=== PATIENT | male | born 1940 | race Caucasian/White ===

== ENCOUNTER 2016-10-13 10:20 | Emergency (ER) | payer BC, MEDICARE, OTHER ==
--- NOTE | 2016-10-13 10:56 | UC ---
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 hx dysrrhymia/hx cardiac arrest/ pacer - History of Current Complaint Stated Complaint: CHEST PAIN Time Seen by Provider: 10/13/16 10:27 Onset/Duration: Gradual Onset, Lasting Days Initial Severity: Mild Current Severity: Moderate Pain Intensity: 4 Chest Pain Location: Diffuse, Upper Sternal Character: Pressure/Squeezing Aggravating: Exertion Alleviating: Rest Associated Signs & Symptoms: Positive: Chest Pain - Allergy/Home Medications Allergies/Adverse Reactions: Allergies Allergy/AdvReac Type Severity Reaction Status Date / Time No Known Allergies Allergy Verified 10/13/16 10:49 Home Medications: Home Medications Hydrochlorothiazide TAB* [Hydrodiuril TAB*] 1 tab PO DAILY 10/13/16 [History Confirmed 10/13/16] Hydroxychloroquine TAB* [Plaquenil TAB*] 1 tab PO BID 10/13/16 [History Confirmed 10/13/16] Ibuprofen [Advil] 600 mg PO DAILY 10/13/16 [History Confirmed 10/13/16] Lisinopril [Zestril 20 MG-] 1 tab PO BID 10/13/16 [History Confirmed 10/13/16] Modafinil TAB* [Provigil TAB*] 2 tab PO BID 10/13/16 [History Confirmed 10/13/16 ] Naltrexone (NF) 1 tab PO DAILY 10/13/16 [History Confirmed 10/13/16] Rivaroxaban TAB(*) [Xarelto 20 mg] 1 tab PO DAILY 10/13/16 [History Confirmed ] Rivastigmine CAP(NF) [Exelon (NF)] 1 tab PO BID 10/13/16 [History Confirmed ] buPROPion TAB* [Wellbutrin TAB*] 1 tab PO DAILY 10/13/16 [History Confirmed ] PMH/Surg Hx/FS Hx/Imm Hx Previously Healthy: No - lupu Cardiovascular History: Hypertension, Pacemaker/ICD, Deep Vein Thrombosis Respiratory History: Bronchitis, Pulmonary Embolism - Surgical History Surgical History: Yes Surgery Procedure, Year, and Place: Back Surgergy; Laminectomy/Fusions L4/L5; Microvascular Decompression- Trigemical Neurlagia; Right TKR, Pace Maker; Left Ankle Arthrodesis. - Family History Known Family History: Positive: Hypertension - Social History Alcohol Use: None Substance Use Type: None Smoking Status (MU): Never Smoked Tobacco Review of Systems Constitutional: Fatigue Skin: Negative Eyes: Negative ENT: Negative Respiratory: Shortness Of Breath, Cough Cardiovascular: Chest Pain Gastrointestinal: Negative Genitourinary: Negative Motor: Negative Neurovascular: Negative Musculoskeletal: Negative Neurological: Negative Psychological: Negative All Other Systems Reviewed And Are Negative: Yes Physical Exam Triage Information Reviewed: Yes Appearance: Well-Appearing, No Pain Distress, Well-Nourished Vital Signs: Initial Vital Signs Temp 98.0 F 10/13/16 10:31 Pulse 62 10/13/16 10:31 Resp 18 10/13/16 10:31 BP 101/68 10/13/16 10:31 Pulse Ox 97 10/13/16 10:31 Vital Signs Reviewed: Yes Eyes: Positive: Conjunctiva Clear ENT: Positive: Hearing grossly normal Neck: Positive: Supple Respiratory: Positive: Crackles - right base. Negative: No respiratory distress - increased work of breathing Cardiovascular: Positive: RRR, No Murmur Abdomen Description: Positive: Nontender, No Organomegaly. Negative: CVA Tenderness (R), CVA Tenderness (L) Bowel Sounds: Positive: Present Musculoskeletal: Positive: Other: - legs both with extensive scars slight some edema which he states is baseling Neurological Exam: Normal Neurological: Positive: Alert Psychological Exam: Normal Skin Exam: Normal Diagnostics - EKG Cardiac Rate: NL - paced rhythm - Assessment/Plan Course Of Treatment: d/w Caty. accepts pt. to [facility] [place] ER via ems - Clinical Impression Provider Diagnoses: chest pressure. dyspnea Discharge - Discharge Plan Condition: Guarded Disposition: TRANS HIGHER LVL OF CARE FAC
[2016-10-13 11:15] VITALS: BP 108/64
== END 2016-10-13 11:16 | disposition short-term general hospital (02) ==
LOC: UCEAST 10:20
DX: R07.89 Other chest pain (principal); R06.00 Dyspnea, unspecified; Z86.711 Personal history of pulmonary embolism; Z95.0 Presence of cardiac pacemaker; Z86.74 Personal history of sudden cardiac arrest; I10 Essential (primary) hypertension
CPT/HCPCS: 93005; 99214; G0463

== ENCOUNTER 2016-10-13 11:35 | Observation (INO) | payer BC, MEDICARE, OTHER ==
[2016-10-13] MEDS ORDERED: NS 0.9% 1000 ML* 1,000 ML IV ONE (11:59)
--- NOTE | 2016-10-13 12:29 | RAD ---
INDICATION: Shortness of breath and chest pain COMPARISON: Most recent comparison chest x-rays dated August 26, 2015 TECHNIQUE: PA and lateral views of the chest were obtained. FINDINGS: The left upper chest cardiac pacemaker with 2 leads overlying the heart is unchanged in position from the previous chest x-ray. The heart and mediastinum are normal in size and contour. The pulmonary vasculature is mildly indistinct and engorged. There is patchy density overlying the lateral left lung base causing a mild degree of costophrenic angle blunting that is new since the previous chest x-ray. Otherwise the lungs are grossly clear. There is no evidence of large pleural effusion. Visualized bones are normal for the patient's age. There is no radiographic evidence of free air beneath the diaphragm IMPRESSION: IN THE CORRECT CLINICAL SETTING THESE RADIOGRAPHIC FINDINGS COULD BE SEEN IN THE SETTING OF MILD CONGESTIVE HEART FAILURE. PATCHY DENSITY AT THE LATERAL LEFT LUNG BASE COULD BE ATELECTASIS OR SMALL PLEURAL EFFUSION.
[2016-10-13 12:33] LABS: Hematocrit 38 % (42-52); Hemoglobin 12.4 g/dl (14.0-18.0); Mean Corpuscular HGB Conc 33 g/dl (31-36); Mean Corpuscular Hemoglobin 29 pg (27-31); Mean Corpuscular Volume 88 fL (80-94); Mean Platelet Volume 10 um3 (7.4-10.4); Red Blood Count 4.32 10^6/ul (4.0-5.4); Red Cell Distribution Width 17 % (10.5-15); White Blood Count 5.3 10^3/ul (3.5-10.8)
[2016-10-13 12:44] LABS: Albumin 3.8 g/dL (3.2-5.2); BUN/Creatinine Ratio 27.4 (8-20); Calcium 9.1 mg/dL (8.6-10.3); EGFR African American 99.7 (>60); EGFR Non-African American 77.5 (>60); Globulin 2.3 g/dL (2-4); Potassium 3.9 mmol/L (3.5-5.0); Total Bilirubin 0.6 mg/dL (0.2-1.0); Total Protein 6.1 g/dL (6.4-8.9)
[2016-10-13 12:46] LABS: Troponin I 0.01 ng/mL (<0.04)
[2016-10-13] MEDS ORDERED: Furosemide IV* 10 MG/ML VIAL (40 MG) IV SLOW PU ONE (13:28)
--- NOTE | 2016-10-13 14:03 | ED ---
Daniel Mccall Alok, scribed for Harsha Grossman MD on 10/13/16 at 1147 . HPI Chest Pain - HPI Summary HPI Summary: 76M presents to the ED BIBA sent here from for CP and SOB. Pt states that he has felt this CP/SOB mildly for the past 3 weeks, worsening over the last 5-6 days. Pt describes his CP as a squeezing/tightness. Pt states that his SOB worsens with ambulation as well as supine position and is accompanied by dizziness and unsteady gait. Pt also notes a productive cough with green/yellow sputum which has become less productive for the past few days. This cough began several weeks ago following a diuretic treatment for his SOB resulting in fluid in the lungs. The pt states his cough worsens at night. Pt states he has been sleeping in an upright position for the last 8-9 days. Pt also notes calf pain 3 -4 days ago as well as wheezing this morning. Pt denies lower extremity edema, fever, or chills. PMHx includes h/o DVT following right knee replacement 2.5 years ago as well as h/o pericarditis and mild loopis. Pt takes xerelto and denies any recent breaks from his medication. Pt was also given doxycycline and prednisone 3 weeks ago which improved his cough. Pt states he last had a stress test 8 days ago in [place], [place]. Pt has NKDA. - History of Current Complaint Time Seen by Provider: 10/13/16 11:37 Hx Obtained From: Patient Onset/Duration: Started Weeks Ago, Atraumatic, Still Present, Worse Since - 5-6 days ago Initial Severity: Moderate Current Severity: Moderate Pain Intensity: 5 Pain Scale Used: 0-10 Numeric Character: Dyspnea at Exertion, Pressure/Squeezing, Tightness Aggravating Factor(s): Exertion, Position Associated Signs and Symptoms: Positive: Chest Pain, Shortness of Breath, Lightheadedness, Productive Cough, Calf Pain/Swelling, Wheezing. Negative: Fever, Chills - Allergy/Home Medications Allergies/Adverse Reactions: Allergies Allergy/AdvReac Type Severity Reaction Status Date / Time No Known Allergies Allergy Verified 10/13/16 10:49 PMH/Surg Hx/FS Hx/Imm Hx Cardiovascular History: Reports: Hx Hypertension, Other Cardiovascular Problems/ Disorders - Pericarditis Denies: Hx Congestive Heart Failure, Hx Valvular Heart Disease Respiratory History: Denies: Hx Asthma, Hx Chronic Obstructive Pulmonary Disease (COPD) - Surgical History Surgery Procedure, Year, and Place: Back Surgergy; Laminectomy/Fusions L4/L5; Microvascular Decompression- Trigemical Neurlagia; Right TKR, Pace Maker; Left Ankle Arthrodesis. - Family History Known Family History: Positive: Hypertension Negative: Cardiac Disease - Social History Occupation: Retired Lives: With Family Alcohol Use: None Substance Use Type: Reports: None Smoking Status (MU): Never Smoked Tobacco Review of Systems Negative: Fever, Chills Positive: Chest Pain Positive: Shortness Of Breath, Cough, Other - wheezing Positive: Other - Calf pain All Other Systems Reviewed And Are Negative: Yes Physical Exam - Summary Physical Exam Summary: The patient is well-nourished in no acute distress and in no acute pain. The skin is warm and dry and skin color reflects adequate perfusion. HEENT: The head is normocephalic and atraumatic. The pupils are equal and reactive. The conjunctivae are clear and without drainage. Nares are patent and without drainage. Mouth reveals slightly dry mucous membranes and the throat is without erythema and exudate. The external ears are intact. The ear canals are patent and without drainage. The tympanic membranes are intact. Neck is supple with full range of motion and non-tender. There are no carotid bruits. There is positive neck vein distension. Respiratory: There are positive lung crackles in the right upper lung scott. There is no wheezing or rhonchi appreciated. Cardiovascular: Hear is regular rate and rhythm. There is no murmur or rub auscultated. There is a pitting lower extremity edema up to the knees bilaterally, and pulses are good distally. Abdomen: The abdomen is soft and non-tender. There are normal bowel sounds heard in all four quadrants and there is no organomegaly palpated. Musculoskeletal: There is no back pain noted. Extremities are non-tender with full range of motion. There is good capillary refill. There is a pitting lower extremity edema up to the knees bilaterally. There is an obvious deformity at the left ankle due to previous surgery. Neurological: Patient is alert and oriented to person, place and time. The patient has symmetrical motor strength in all four extremities. Cranial nerves are grossly intact. Deep tendon reflexes are symmetrical and equal in all four extremities. Psychiatric: The patient has an appropriate affect and does not exhibit any anxiety or depression. Triage Information Reviewed: Yes Vital Signs On Initial Exam: Initial Vital Signs Temp 98.4 F 10/13/16 11:40 Pulse 67 10/13/16 11:40 Resp 20 10/13/16 11:40 BP 115/74 10/13/16 11:40 Pulse Ox 96 10/13/16 11:40 Vital Signs Reviewed: Yes Diagnostics - Vital Signs Vital Signs Temp Pulse Resp BP Pulse Ox 10/13/16 13:32 64 100 10/13/16 11:40 98.4 F 67 20 115/74 96 - Laboratory Lab Results: Lab Results 10/13/16 10/13/16 10/13/16 Range/Units 10:52 10:52 10:52 WBC 5.3 (3.5-10.8) 10^3/ul RBC 4.32 (4.0-5.4) 10^6/ul Hgb 12.4 L (14.0-18.0) g/dl Hct 38 L (42-52) % MCV 88 (80-94) fL MCH 29 (27-31) pg MCHC 33 (31-36) g/dl RDW 17 H (10.5-15) % Plt Count 141 L (150-450) 10^3/ul MPV 10 (7.4-10.4) um3 Neut % (Auto) 72.6 (38-83) % Lymph % (Auto) 9.8 L (25-47) % Collin % (Auto) 8.1 (1-9) % Eos % (Auto) 8.5 H (0-6) % Baso % (Auto) 1.0 (0-2) % Absolute Neuts (auto) 3.8 (1.5-7.7) 10^3/ul Absolute Lymphs (auto) 0.5 L (1.0-4.8) 10^3/ul Absolute Monos (auto) 0.4 (0-0.8) 10^3/ul Absolute Eos (auto) 0.4 (0-0.6) 10^3/ul Absolute Basos (auto) 0.1 (0-0.2) 10^3/ul Absolute Nucleated RBC 0.01 10^3/ul Nucleated RBC % 0.1 INR (Anticoag Therapy) 1.40 H (0.89-1.11) D-Dimer, Quantitative 225 (Less Than 230) ng/mL Sodium 136 (133-145) mmol/L Potassium 3.9 (3.5-5.0) mmol/L Chloride 106 (101-111) mmol/L Carbon Dioxide 29 (22-32) mmol/L Anion Gap 1 L (2-11) mmol/L BUN 26 H (6-24) mg/dL Creatinine 0.95 (0.67-1.17) mg/dL Est GFR ( Amer) 99.7 (>60) Est GFR (Non-Af Amer) 77.5 (>60) BUN/Creatinine Ratio 27.4 H (8-20) Glucose 77 (70-100) mg/dL Lactic Acid (0.5-2.0) mmol/L Calcium 9.1 (8.6-10.3) mg/dL Total Bilirubin 0.60 (0.2-1.0) mg/dL AST 25 (13-39) U/L ALT 30 (7-52) U/L Alkaline Phosphatase 67 (34-104) U/L Troponin I 0.01 (<0.04) ng/mL B-Natriuretic Peptide ( - 100) pg/mL Total Protein 6.1 L (6.4-8.9) g/dL Albumin 3.8 (3.2-5.2) g/dL Globulin 2.3 (2-4) g/dL Albumin/Globulin Ratio 1.7 (1-3) 10/13/16 10/13/16 Range/Units 10:52 10:52 WBC (3.5-10.8) 10^3/ul RBC (4.0-5.4) 10^6/ul Hgb (14.0-18.0) g/dl Hct (42-52) % MCV (80-94) fL MCH (27-31) pg MCHC (31-36) g/dl RDW (10.5-15) % Plt Count (150-450) 10^3/ul MPV (7.4-10.4) um3 Neut % (Auto) (38-83) % Lymph % (Auto) (25-47) % Collin % (Auto) (1-9) % Eos % (Auto) (0-6) % Baso % (Auto) (0-2) % Absolute Neuts (auto) (1.5-7.7) 10^3/ul Absolute Lymphs (auto) (1.0-4.8) 10^3/ul Absolute Monos (auto) (0-0.8) 10^3/ul Absolute Eos (auto) (0-0.6) 10^3/ul Absolute Basos (auto) (0-0.2) 10^3/ul Absolute Nucleated RBC 10^3/ul Nucleated RBC % INR (Anticoag Therapy) (0.89-1.11) D-Dimer, Quantitative (Less Than 230) ng/mL Sodium (133-145) mmol/L Potassium (3.5-5.0) mmol/L Chloride (101-111) mmol/L Carbon Dioxide (22-32) mmol/L Anion Gap (2-11) mmol/L BUN (6-24) mg/dL Creatinine (0.67-1.17) mg/dL Est GFR ( Amer) (>60) Est GFR (Non-Af Amer) (>60) BUN/Creatinine Ratio (8-20) Glucose (70-100) mg/dL Lactic Acid 1.2 (0.5-2.0) mmol/L Calcium (8.6-10.3) mg/dL Total Bilirubin (0.2-1.0) mg/dL AST (13-39) U/L ALT (7-52) U/L Alkaline Phosphatase (34-104) U/L Troponin I (<0.04) ng/mL B-Natriuretic Peptide 457 H ( - 100) pg/mL Total Protein (6.4-8.9) g/dL Albumin (3.2-5.2) g/dL Globulin (2-4) g/dL Albumin/Globulin Ratio (1-3) Result Diagrams: 10/13/16 10:52 10/13/16 10:52 Lab Statement: Any lab studies that have been ordered have been reviewed, and results considered in the medical decision making process. - Radiology CXR Xray Interpretation: Positive (See Comments) - IN THE CORRECT CLINICAL SETTING THESE RADIOGRAPHIC FINDINGS COULD BE SEEN IN THE SETTING OF MILD CONGESTIVE HEART FAILURE. PATCHY DENSITY AT THE LATERAL LEFT LUNG BASE COULD BE ATELECTASIS OR SMALL PLEURAL EFFUSION. Radiology Interpretation Completed By: Radiologist - EKG 1153 EKG Interpretation: Paced Rhythm Re-Evaluation - Re-Evaluation First Eval Re-Evaluation Time: 13:29 Change: Unchanged Comment: Reviewed pt labs and XRAY. Pt agrees to admit at [facility] [place]. Chest Pain Course/Dx - Course Course Of Treatment: Pt presents with CP and SOB on exertion. EKG and CXR done. Spoke with Dr. Acosta who agreed to admit to [facility] [place]. - Chest Pain Differential Diagnosis/HQI/PQRI: Acute ND, ACS, CHF, Lower Respiratory Infection , Pulmonary Edema, Pulmonary Embolism - Diagnoses Provider Diagnoses: Acute dyspnea, CHF (congestive heart failure) - Provider Notifications Discussed Care Of Patient With: Lou Acosta - Will admit pt to [facility] [place] Time Discussed With Above Provider: 13:26 - Critical Care Time Critical Care Time: 30-74 min - 30 min Discharge - Discharge Plan Condition: Stable Disposition: ADMITTED TO [facility] Referrals: No Primary Care Phys,NOPCP [Primary Care Provider] - The documentation as recorded by the Daniel dobbins Alok accurately reflects the service I personally performed and the decisions made by me, Harsha Grossman MD.
[2016-10-13] MEDS ORDERED: Hydroxychloroquine TAB* 200 MG PO SCH (17:00)
[2016-10-13] MEDS ORDERED: QUEtiapine TAB* 100 MG PO PRN (17:38)
--- NOTE | 2016-10-13 17:45 | ECHO ---
Patient: LESLIE GILMORE [facility] Rec#: [id number] : 1940 Date: 10/13/2016 Age: 76y Height: 180 cm / 70.9 in Weight: 115.7 kg / 255.0 lbs Sex: M BSA: 2.34 Room#: 432 Admit Date#: 10/13/2016 Type: Inpatient Referring: Lou Acosta DO Reading: Matti Arguello MD Director College: Amira Banda RN RDCS Transthoracic Echocardiogram Indication: CHF BP: 127/85 HR: 67 Rhythm: Paced Findings History: HTN, pacemaker, pericarditis, DVT Technical Comments: The study quality is fair. The study is technically limited due to patient body habitus. Completed at 1715. Left Ventricle: The left ventricular chamber size is normal. There is increased basal septal hypertrophy noted without evidence of an increased gradient across the left ventricular outflow tract. Global left ventricular wall motion and contractility are within normal limits. Left ventricular systolic function is at the lower limits of normal. The estimated ejection fraction is 55-60%. There is abnormal ventricular septal wall motion consistent with right ventricular pacemaker. Abnormal left ventricular diastolic function is observed. Left Atrium: The left atrium is moderately dilated. Right Ventricle: The right ventricular chamber size and systolic function are within normal limits. The right ventricle wall thickness is moderately increased.8 mm. A pacemaker wire is visualized in the right ventricle. Right Atrium: The right atrium is mildly dilated. A pacemaker wire is visualized in the right atrium. Aortic Valve: The aortic valve is trileaflet. The aortic valve leaflets are mildly thickened. There is no evidence of aortic regurgitation. There is no evidence of aortic stenosis. Mitral Valve: Mild mitral annular calcification present. The mitral valve leaflets are mildly thickened. There is mild to moderate mitral regurgitation. There is no evidence of mitral stenosis. Tricuspid Valve: The tricuspid valve leaflets are normal. There is mild to moderate tricuspid regurgitation. There is evidence of mild pulmonary hypertension. Pulmonic Valve: The pulmonic valve structure is not well visualized. There is mild pulmonic regurgitation. Pericardium: There is no significant pericardial effusion. A pericardial fat pad is visualized. Aorta: There is no dilatation of the ascending aorta. There is no dilatation of the aortic arch. There is no dilation of the aortic root. Pulmonary Artery: The main pulmonary artery is not well visualized. Venous: The inferior vena cava is not visualized. Summary: There was not any prior study for comparison. Conclusions The study quality is fair. There is increased basal septal hypertrophy noted without evidence of an increased gradient across the left ventricular outflow tract. The estimated ejection fraction is 55-60%. There is abnormal ventricular septal wall motion consistent with right ventricular pacemaker. Abnormal left ventricular diastolic function is observed. The left atrium is moderately dilated. The right ventricle wall thickness is moderately increased.8 mm. The aortic valve leaflets are mildly thickened. There is mild to moderate mitral regurgitation. There is mild to moderate tricuspid regurgitation. There is evidence of mild pulmonary hypertension. Measurements Name Value Normal Range RVIDd (AP) 2D 2.7 cm (0.9 - 2.6) RVDdMajor (2D) 4.4 cm (2.2 - 4.4) RAd ISD 4CH 5.3 cm (3.4 - 4.9) RA (A4C)W 4.2 cm (2.9 - 4.6) IVSd (2D) 1.4 cm (0.6 - 1) LVPWd (2D) 0.9 cm (0.6 - 1) LVIDd (2D) 4.4 cm (3.6 - 5.4) LVIDs (2D) 3.5 cm - LV FS (2D) 20 % (25 - 45) Aortic Annulus 1.8 cm (1.4 - 2.6) Ao root diameter (2D) 3.3 cm (2.1 - 3.5) Ascending Ao 3.1 cm (2.1 - 3.4) Aortic arch 2.8 cm (1.8 - 3.4) LA dimension (AP) 2D 3.7 cm (2.3 - 3.8) LAd ISD 4CH 5.4 cm (2.9 - 5.3) LA ISD 4CH W 4.4 cm (2.5 - 4.5) Name Value Normal Range LA ESV SP 4CH (A/L) 60 ml - LA ESV SP 2CH (A/L) 70 ml - LA ESV BP (A/L) 73 ml - LA ESV BP (A/L) index 31.2 ml/m2 - LA ESV SP 4CH (MOD) 54 ml - LA ESV SP 2CH (MOD) 67 ml - Name Value Normal Range MV E-wave Vmax 1.2 m/sec - MV deceleration time 184 msec - LV septal e' Vmax 0.04 m/sec - LV lateral e' Vmax 0.05 m/sec - LV E:e' septal ratio 30 ratio - LV E:e' lateral ratio 24 ratio - Name Value Normal Range AV Vmax 1.1 m/sec - AV VTI 22 cm - AV peak gradient 5 mmHg - AV mean gradient 3 mmHg - LVOT Vmax 0.85 m/sec - LVOT VTI 17.4 cm - LVOT peak gradient 3 mmHg - LVOT mean gradient 2 mmHg - VIVIANA Vmax 0.87 m/sec - Name Value Normal Range TR Vmax 2.7 m/sec - TR peak gradient 29 mmHg - RAP 8 mmHg - RVSP 37 mmHg - Name Value Normal Range PV Vmax 0.69 m/sec -
[2016-10-13] MEDS ORDERED: Latanoprost 0.005%* 2.5 ml BTL BOTH EYES SCH (18:00)
[2016-10-13] MEDS: Lisinopril TAB* 10 MG PO SCH (20:56)
[2016-10-13] MEDS: Timolol 0.5% OPTH.SOL* BTL RIGHT EYE SCH (20:56)
[2016-10-13] MEDS: Hydroxychloroquine TAB* 200 MG PO SCH (20:56)
[2016-10-13] MEDS: CMC:Rivastigmine CAP(NF) 1.5 MG CAP PO SCH (20:58)
--- NOTE | 2016-10-14 07:01 | HP ---
CC: Dr. Samuel Fatima; Dr. Brandy Bustos; Dr. Tamir Tran* HISTORY AND PHYSICAL: DATE OF ADMISSION: 10/13/16 PRIMARY CARE PHYSICIAN: Dr. Samuel Fatima, [facility], [place], [place]. HEAVY FORGING MACHINE OPERATOR: Dr. Brandy Bustos, [facility]. PHOTO CARTOGRAPHER: Dr. Tamir Tran, [facility]. CHIEF COMPLAINT: Chest tightness and shortness of breath. HISTORY OF PRESENT ILLNESS: Mr. Brandy Gardner is a 76-year-old male who earlier this month around September 21 to began to have chest tightness and shortness of breath. He was seen at Urgent Care back home on 09/24/16. At that time, he believes he was diagnosed with reactive airway disease related to a viral infection and started on prednisone. The patient states that on , lab works came back from the Urgent Care. This showed he had perhaps some mild CHF. At that point, he was started on furosemide for approximately 1 week. The patient began to feel better. On 09/26/16, he underwent a chemical nuclear stress test that did not reveal any evidence of ischemia (per the patient); however, on the night of 09/26/16, the patient began to have significant cough and green sputum production. He was then started on doxycycline on 09/27/16. The patient was still symptomatic, but feeling improved. Therefore, got on an airplane on 09/28/16 and flew to [place]. The patient had been okay for the last couple of weeks until 4 to 5 days ago, when he noted that his cough became much more significant. He describes the cough as being mostly nocturnal. He also described having some wheezing. He has been sleeping in the recliner over the last 2 weeks. He continues to bring up some sputum that is light yellow in color. The patient went to Urgent Care on the morning of admission due to continued shortness of breath with exertion. This has become so severe that he was unable to walk across the yard to get breakfast on the morning of admission. The patient was then transferred to [facility] for admission. PAST MEDICAL HISTORY: 1. Lupus. 2. Gluten intolerance. 3. History of pericarditis x2. 4. History of pleurisy x1. 5. 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 6. Left foot surgery. 7. Mild cognitive impairment. 8. Obstructive sleep apnea. 9. Lumbar spine surgery. 10. Pacemaker insertion in 2006, etiology unclear. MEDICATIONS: The patient is not sure of some medication. This is the best guess of what he is taking. 1. Plaquenil 200 mg p.o. b.i.d. 2. Bupropion 75 mg p.o. daily. 3. Rivastigmine 1.5 mg p.o. b.i.d. 4. Xarelto 20 mg p.o. daily. 5. Naltrexone 50 mg p.o. daily. 6. Modafinil 200 mg p.o. b.i.d. 7. Lisinopril 20 mg p.o. b.i.d. 8. Ibuprofen 600 mg p.o. daily p.r.n. pain. 9. Hydrochlorothiazide 25 mg p.o. daily. ALLERGIES: No known drug allergies. FAMILY HISTORY: Mom at the age of 97. She had dementia. Dad at the age of 96. He had kidney failure and heart disease. SOCIAL HISTORY: The patient is a nonsmoker. He does not drink alcohol. He is a retired school speech language pathologist. He has 5 children. He has 1 child with his current . REVIEW OF SYSTEMS: The patient denies any fevers, chills, or anorexia. He admits to the chest tightness as above. He did not notice that his left leg was swollen, but during my exam when I pointed out, he states that yes that is more swollen than usual. He admits to shortness of breath and cough as above. He is still producing a small amount of sputum. He denies any nausea, vomiting , abdominal pain, constipation, or diarrhea. No hematochezia, no hematuria, no dysuria. He did take a fall approximately 1 week ago and scrapped his left anterior jarrell while on a boat. At the time of fall and scrapping jarrell, he also hit the back of his head. He believes he may have had a concussion for a couple of days. PHYSICAL EXAMINATION GENERAL: The patient is a well-developed elderly male, who appears younger than his stated age, sitting up in the bed, in no acute distress. VITAL SIGNS: Blood pressure 127/85, pulse 64, respirations 16, temp 98.2, O2 sat 100% on room air. HEENT: Pupils are equal. They are round, react to light. Extraocular muscles are intact. Oropharynx is clear. Oral mucosa is moist. There is no submandibular, cervical, or supraclavicular adenopathy. Thyroid is not enlarged. No thyroid nodules are noted. PULMONARY: Lungs are clear to auscultation bilaterally. There are few bibasilar crackles. CARDIAC: Normal S1, S2. Regular rate and rhythm. I did not appreciate any murmurs. There is trace to 1+ left lower extremity pitting edema. ABDOMEN: Bowel sounds present. Abdomen is soft, nontender, nondistended. MUSCULOSKELETAL: There is no cyanosis or clubbing of the digits. There is full active range of motion of all 4 extremities. SKIN: Warm and dry. There are no rashes. There is scabbed over abrasion with slight erythema around the scab of the left anterior jarrell. There is a small approximately 4 mm round ulceration on the distal tip of the left first toe. It appears to be possible small ulceration on the tip of the left second toe. NEURO: Cranial nerves II through XII are grossly intact. Sensation is intact to light touch throughout. Strength is 5/5 and symmetric both upper and lower extremities bilaterally. PSYCH: The patient is alert and oriented x3. Affect appears appropriate. LABORATORY DATA: WBC 5.3, hemoglobin 12.4, hematocrit 38, platelets 141. INR 1.40. D-dimer 225. Sodium 136, potassium 3.9, chloride 106, CO2 of 29, BUN 26 , creatinine 0.95, glucose 77, lactic acid 1.2, calcium 9.1, bilirubin 0.6, AST 25, ALT 30, alk phos 67. Troponin 0.01. BNP 457. Albumin 3.8. EKG reveals a ventricularly paced rhythm. Chest x-ray read as in the correct clinical setting, radiographic findings could be seen in the setting of mild congestive heart failure. The patchy density at the left lateral lung base could be atelectasis or small pleural effusion. ASSESSMENT AND PLAN: Mr. Brandy Gardner is a 76-year-old male with a history of lupus, PE following a right total knee replacement, hypertension, and obstructive sleep apnea who presented to the emergency room with complaints of persistent chest tightness and shortness of breath, despite being treated for what sounds to be bronchitis, reactive airways and possible mild CHF prior to leaving for vacation approximately 2 weeks ago. 1. Dyspnea. The etiology of this is most likely mild CHF. The patient describes what sounds to be orthopnea and cough at night, which could be attributed to the CHF. He does feel better after receiving IV Lasix in the emergency room. He states that he is urinating much more than he did when he took the Lasix orally at home. The transthoracic echocardiogram has been ordered and being completed at this time. The patient will receive another dose of IV Lasix tomorrow morning. My suspicion is he may be eating a diet higher in salt while on vacation, perhaps this has contributed some. The patient is still coughing bringing up some yellowish colored sputum, however, has no other signs of infection. I did not hear any wheezing on exam. I am going to hold off on prednisone at this point as that can make CHF worse. If he shows any further signs of infection, we will consider starting the patient on either azithromycin or Levaquin. The patient will be monitored overnight an I am hopeful that he will be able to be discharged tomorrow so he can fly back home and followup with his usual providers. I will get a follow up troponin on the patient now; however, my suspicion is very low that he is having an acute coronary syndrome as his symptoms have been persistent for so long. The patient also had a stress test approximately 2 weeks ago. The patient has a it systems analyst at home and my recommendation will be for the patient to followup with him upon arriving home. 2. Hypertension. The patient's blood pressure is under good control. He will be maintained on his usual dose of lisinopril and hydrochlorothiazide. 3. Lupus. The patient will be continued on his usual dose of Plaquenil 200 mg p.o. b.i.d. 4. History of pulmonary embolus. This dates back within the last couple of years, though he has remained on the Xarelto due to a persistently elevated D- dimer. I will continue his Xarelto for now, however, his D-dimer at this admission is within normal range and perhaps the Xarelto could be discontinued. 5. Mild cognitive impairment. Exelon is nonformulary at [facility] and therefore this will be held at this time. 6. DVT prophylaxis. According to the Adult Thrombosis Prophylaxis Risk Factor Assessment Guide, the patient has a total risk factor score of 7, making him the highest risk. He will continue on his Xarelto, which will act as his DVT prophylaxis. 6. Code status is full and patient indicates that his is his healthcare proxy. TIME SPENT: Sixty five minutes was spent admitting this patient. [id number]/[facility] #: [id number] MTDD
[2016-10-14 07:58] VITALS: BP 127/86
[2016-10-14] MEDS ORDERED: Modafinil TAB* 100 MG PO SCH (08:00)
[2016-10-14] MEDS: CMC:Rivastigmine CAP(NF) 1.5 MG CAP PO SCH (08:48)
[2016-10-14] MEDS: Timolol 0.5% OPTH.SOL* BTL RIGHT EYE SCH (08:48)
[2016-10-14] MEDS: Hydroxychloroquine TAB* 200 MG PO SCH (08:48)
[2016-10-14] MEDS ORDERED: Hydrochlorothiazide TAB* 25 MG PO SCH (09:00)
[2016-10-14] MEDS ORDERED: buPROPion TAB* 75 MG PO SCH (09:00)
[2016-10-14] MEDS ORDERED: Furosemide IV* 10 MG/ML VIAL (40 MG) IV SCH (09:00)
[2016-10-14] MEDS: Lisinopril TAB* 10 MG PO SCH (09:14)
[2016-10-14] MEDS ORDERED: Rivaroxaban TAB(*) 20 MG TAB PO SCH (17:00)
--- NOTE | 2016-10-15 08:48 | DS ---
CC: Dr. Samuel Fatima* DISCHARGE SUMMARY: DATE OF ADMISSION: 10/13/2016. DATE OF DISCHARGE: 10/14/2016. PRIMARY CARE PROVIDER: Dr. Samuel Fatima at [facility] in [place], [place]. DISCHARGING PROVIDER: FIORELLA Beard. SUPERVISING PHYSICIAN: Dr. Ashly Freeman* (dictated by FIORELLA Beard). PRIMARY DISCHARGE DIAGNOSIS: Acute diastolic heart failure - resolved. SECONDARY DISCHARGE DIAGNOSES: 1. Lupus. 2. History of pericarditis without evidence of recurrence. 3. Gluten intolerance. 4. Trigeminal neuralgia. 5. Mild cognitive impairment not obvious on initial conversation. 6. Obstructive sleep apnea with mild pulmonary hypertension. 7. Pacemaker in place in 2006, which appears to be working appropriately based on continuous telemetry monitoring. DISCHARGE MEDICATIONS: 1. Lumigan eye drops 0.01% ophthalmic solution one drop in both eyes each evening. 2. Plaquenil 200 mg p.o. twice daily. 3. Lisinopril 20 mg p.o. twice daily. 4. Provigil 200 mg p.o. twice daily. 5. Naltrexone 50 mg p.o. daily. 6. Seroquel 400 mg p.o. at bedtime. 7. Xarelto 20 mg p.o. daily. 8. Exelon 1.5 mg p.o. twice daily. 9. Timolol 0.5% solution one drop in the right eye twice daily. 10. Wellbutrin 75 mg p.o. daily. Medication Changes: 1. Start Lasix. 2. Stop hydrochlorothiazide. HOSPITAL IMAGIN. Chest x-ray showed some mild pulmonary venous congestion. 2. Transthoracic echocardiogram shows normal left ventricular ejection fraction at 55% to 60% with [id number] mitral regurg, some mild thickening of the right ventricle with intact systolic function and evidence of moderately dilated left atrium. HOSPITAL COURSE: This is a 76-year-old gentleman with history of lupus and associated pericarditis on two prior occasions as well as obstructive sleep apnea, history of prior PE for which he is anticoagulated with Xarelto and a pacemaker in place, who presented with complaints of chest tightness and shortness of breath. Patient's symptoms have been ongoing for approximately 3 weeks and patient is visiting from out of town and home is in the [facility] in [place]. He states that he was seen by Urgent Care when symptoms started and was diagnosed with what sounded to be some reactive airway problems and started on prednisone at that time. His followup labs then suggested that perhaps this represented more of a CHF exacerbation and was given furosemide for a week. He underwent nuclear stress testing to follow, which was negative for ischemia. He then developed a more productive cough and was started on doxycycline a few days later and did notice that his symptoms improved at that point for almost a couple of weeks and then became worse again over the last several days to the point that he was unable to ambulate across the parking lot without severe dyspnea. Patient was subsequently evaluated in the emergency department, which demonstrated normal CBC. D-dimer was within normal limits and comprehensive metabolic panel was unremarkable. BNP is moderately elevated to 457 with negative troponin and evidence of mild pulmonary venous congestion on chest x-ray. The patient had few crackles on lung exam at the time of admission as well as evidence of lower extremity edema. Patient was subsequently admitted for what appeared to be CHF exacerbation and was diuresed with IV Lasix. He underwent echocardiogram, which showed normal left ventricular ejection fraction, right ventricle was moderately thickened with evidence of mild pulmonary hypertension. There was no pericardial effusion noted on echocardiogram. The patient was monitored on continuous telemetry without any dysrhythmias and nearly 100% paced rhythm with just few interval PVCs. Vitals remained stable and patient was diuresed with IV Lasix, which resulted in significant improvement in his complaints of dyspnea. DISPOSITION AND FOLLOWUP PLAN: Patient is being discharged to home. He has plans to travel home to [place] today. This seems to be an appropriate plan and I do not see any contraindication to air travel at this time. Symptoms seemed to be most consistent with diastolic heart failure and recommend starting daily Lasix therapy to replace his hydrochlorothiazide. Patient is provided with copy of all his records at the time of discharge and received instructions to follow up with his primary care provider within a week of discharge. FIORELLA BEARD [id number]/[facility] #: [id number] LUISA
== END 2016-10-14 10:20 | disposition home or self-care (01) ==
LOC: ED 11:35 → MEDTELE 13:10 → INTOOBSV 13:10 → ED 13:58
PROVIDERS: ADMIT Hospitalist; ATTEND Hospitalist
DX: I50.31 Acute diastolic (congestive) heart failure (principal); L93.0 Discoid lupus erythematosus; G50.0 Trigeminal neuralgia; G47.33 Obstructive sleep apnea (adult) (pediatric); I27.2 Other secondary pulmonary hypertension; Z95.0 Presence of cardiac pacemaker; Z79.01 Long term (current) use of anticoagulants
CPT/HCPCS: 36415; 71020; 80053; 83605; 83880; 84484; 85025; 85379; 85610; 87040; 93005; 93306; 96374; 96375; 99285; A9270-GY; G0378; J1940